=== PATIENT | female | born 1965 | race Caucasian/White ===

== ENCOUNTER 2017-11-24 17:27 | Emergency (ER) | payer MEDICAID ==
[~2017-11-24] VITALS: Ht 162.6 cm; Wt 52.3 kg
[2017-11-24 19:24] VITALS: BP 133/87
== END 2017-11-24 19:27 | disposition home or self-care (01) ==
LOC: EMS 17:28
DX: L29.9 Pruritus, unspecified (principal); R03.0 Elevated blood-pressure reading, without diagnosis of hypertension; F17.210 Nicotine dependence, cigarettes, uncomplicated
CPT/HCPCS: 99283